=== PATIENT | female | born 1955 | race African-American/Black ===

== ENCOUNTER 2016-09-13 16:44 | Emergency (ER) | payer MEDICARE, MEDICAID ==
[2016-09-13] MEDS ORDERED: Pantoprazole 40 MG VIAL ONE (16:59)
[2016-09-13] MEDS ORDERED: Ondansetron HCl/PF 4 MG/2 ML Vial ONE (16:59)
[2016-09-13 17:12] LABS: #Basophils 0.1 thou/uL (0.0-0.2); #Eosinphils 0.3 thou/uL (0.0-0.7); #Lymphocytes 2.5 thou/uL (1.20-3.40); #Neutrophils 5.7 thou/uL (1.40-6.50); %Basophils 1.4 % (0.0-1.0); %Eosinophils 3.1 % (0.0-10.0); %Monocytes 10.8 % (0.0-10.0); Hematocrit 39.1 % (36.0-47.0); Mean Platelet Volume 7.9 fL (7.4-10.4); Red Blood Cell (RBC) Count 4.12 mill/uL (4.20-5.40); White Blood Cell (WBC) Count 9.7 thou/uL (4.8-10.8)
[2016-09-13 17:26] LABS: ALT (SGPT) 29 U/L (0-55); AST (SGOT) 42 U/L (5-34); Alkaline Phosphatase 94 U/L (40-150); Anion Gap 12 mmol/L (10-20); BUN (Urea Nitrogen) 24 mg/dL (9.8-20.1); Bilirubin, Total 0.8 mg/dL (0.2-1.2); Calc. Creatinine Clearance 0 mL/min (70-130); Calcium 9.7 mg/dL (7.8-10.44); Carbon Dioxide 19 mmol/L (22-29); Chloride 108 mmol/L (98-107); Estimated GFR-MDRD 53; Globulin 4.3 g/dL (2.4-3.5); Protein, Total 7.8 g/dL (6.0-8.3)
== END 2016-09-13 18:01 | disposition home or self-care (01) ==
LOC: BURERS 16:44
DX: R11.2 Nausea with vomiting, unspecified (principal); I50.9 Heart failure, unspecified; I10 Essential (primary) hypertension; D64.9 Anemia, unspecified; F41.9 Anxiety disorder, unspecified; F17.210 Nicotine dependence, cigarettes, uncomplicated; J44.9 Chronic obstructive pulmonary disease, unspecified
CPT/HCPCS: 80053; 82274; 85025; 96361; 96374; 96375; C9113; J2405

== ENCOUNTER 2016-11-10 10:18 | Emergency (ER) | payer MEDICARE, MEDICAID ==
[2016-11-10] MEDS ORDERED: Metoprolol Tartrate 5 MG/5 ML VIAL ONE ×2 (10:29→10:36)
[2016-11-10] MEDS ORDERED: Nitroglycerin 0.4 MG TAB (25 Tab Bottle) ONE (10:52)
[2016-11-10 10:59] LABS: Mean Corpuscular Hemoglobin 30.4 pg (27.0-31.0); Mean Corpuscular Volume 89.5 fl (81.0-99.0); Mean Platelet Volume 8.8 fL (7.4-10.4); Platelet Count 204 thou/uL (130-400); RBC Distribution Width 12.8 % (11.5-14.5); Red Blood Cell (RBC) Count 4.61 mill/uL (4.20-5.40); White Blood Cell (WBC) Count 6.5 thou/uL (4.8-10.8)
[2016-11-10] MEDS ORDERED: Magnesium Sulfate 2 GM/100 ML BAG ONE (11:03)
[2016-11-10 11:04] LABS: INR-International Normal Ratio 1.3; Prothrombin Time 16.7 SEC (12.0-14.7)
[2016-11-10 11:10] LABS: ALT (SGPT) 19 U/L (0-55); AST (SGOT) 35 U/L (5-34); Albumin 3.9 g/dL (3.5-5.0); Alkaline Phosphatase 95 U/L (40-150); Anion Gap 15 mmol/L (10-20); BUN (Urea Nitrogen) 8 mg/dL (9.8-20.1); Bilirubin, Total 0.7 mg/dL (0.2-1.2); Calc. Creatinine Clearance 0 mL/min (70-130); Calcium 9.3 mg/dL (7.8-10.44); Carbon Dioxide 18 mmol/L (22-29); Chloride 107 mmol/L (98-107); Estimated GFR-MDRD 88; Globulin 4.3 g/dL (2.4-3.5); Glucose 68 mg/dL (70-105); Potassium 3.7 mmol/L (3.5-5.1); Protein, Total 8.2 g/dL (6.0-8.3); Sodium 136 mmol/L (136-145)
[2016-11-10 11:13] LABS: Acetaminophen Less than 3.0 mcg/mL (10.0-30.0); Alcohol 50 mg/dL (Less than 10); Salicylate Less than 5.0 mg/dL (15.0-30.0)
[2016-11-10 11:14] LABS: Digoxin Less than 0.15 ng/mL (0.8-2.0)
[2016-11-10 11:16] LABS: Eosinophils 1 % (0-10); Lymphocytes 57 % (21-51); MDiff Complete? YES; Monocytes 12 % (0-10); Neutrophil 29 % (42-75); PLT Morphology Comment Appears Adequate
[2016-11-10 11:18] LABS: CKMB 2.4 ng/mL (0-6.6)
--- NOTE | 2016-11-10 18:38 | RAD ---
PORTABLE CHEST: 11/10/16 An AP portable film at 1104 is compared with a 10/15/15 study. The heart is mildly enlarged and seems a bit larger today than before. The vessels are not grossly c ongested, though they are perhaps a little more prominent than previously. Dense calcification is se en in the aortic arch. The main pulmonary artery seems more prominent in size than it was previously . The trachea is midline. There are no effusions. IMPRESSION: 1. Cardiomegaly. The heart size has increased in the interval. 2. Arteriosclerosis. POS: HOME
== END 2016-11-10 15:40 | disposition short-term general hospital (02) ==
LOC: BURERS 10:18
DX: I11.0 Hypertensive heart disease with heart failure (principal); I50.31 Acute diastolic (congestive) heart failure; D64.9 Anemia, unspecified; F17.210 Nicotine dependence, cigarettes, uncomplicated; Z79.899 Other long term (current) drug therapy
CPT/HCPCS: 36416; 71010; 80053; 80162; 80307; 82553; 83880; 84484; 85025; 85610; 93005; 96361; 96365; 96366; 96375; J3475

== ENCOUNTER 2017-01-02 10:42 | Emergency (ER) | payer MEDICARE, MEDICAID ==
--- NOTE | 2017-01-02 11:34 | RAD ---
CHEST 1 VIEW AND ABDOMEN 2 VIEWS: HISTORY: Abdominal pain, watery diarrhea. FINDINGS/IMPRESSION: The heart size is normal. The lungs are expanded without focal areas of consolidation, pneumothorax , or pleural effusions. There are postop changes of cholecystectomy. No free air or differential fluid levels are seen. Th e bowel gas pattern is unremarkable. There are mild degenerative changes in the spine. No suspicio us calcifications are identified. POS: H
[2017-01-02 11:56] LABS: INR-International Normal Ratio 1.5; Prothrombin Time 18.5 SEC (12.0-14.7)
[2017-01-02 12:20] LABS: Troponin I 0.022 ng/mL (< 0.028)
[2017-01-02 12:21] LABS: BUN (Urea Nitrogen) 12 mg/dL (9.8-20.1); Bilirubin, Total 3.7 mg/dL (0.2-1.2); Calc. Creatinine Clearance 0 mL/min (70-130); Calcium 8.6 mg/dL (7.8-10.44); Carbon Dioxide 20 mmol/L (22-29); Chloride 104 mmol/L (98-107); Estimated GFR-MDRD 86; Glucose 87 mg/dL (70-105); Potassium 3.8 mmol/L (3.5-5.1); Protein, Total 7.8 g/dL (6.0-8.3); Sodium 134 mmol/L (136-145)
[2017-01-02 12:22] LABS: ALT (SGPT) 51 U/L (8-55); AST (SGOT) 127 U/L (5-34); Albumin 3.2 g/dL (3.5-5.0); Alkaline Phosphatase 146 U/L (40-150); Globulin 4.6 g/dL (2.4-3.5); Lipase 96 U/L (8-78)
[2017-01-02 12:24] LABS: #Basophils 0.7 thou/uL (0.0-0.2); #Eosinphils 0.8 thou/uL (0.0-0.7); #Monocytes 0.6 thou/uL (0.11-0.59); #Neutrophils 1.5 thou/uL (1.40-6.50); %Basophils 1.7 % (0.0-1.0); %Eosinophils 1.9 % (0.0-10.0); %Lymphocytes 43.5 % (21.0-51.0); %Neutrophils 38.9 % (42.0-75.0); Hemoglobin 14.1 g/dL (12.0-16.0); Mean Corpuscular HGB CONC 34.6 g/dL (32.0-36.0); Mean Corpuscular Hemoglobin 30.4 pg (27.0-31.0); Mean Corpuscular Volume 87.7 fL (81.0-99.0); Mean Platelet Volume 10.9 fL (7.4-10.4); Platelet Count 98 thou/uL (130-400); RBC Distribution Width 14.7 % (11.5-14.5); Red Blood Cell (RBC) Count 4.64 mill/uL (4.20-5.40)
[2017-01-02 12:25] LABS: MDiff Complete? YES
[2017-01-02] MEDS ORDERED: Ondansetron HCl/PF 4 MG/2 ML Vial ONE (13:41)
--- NOTE | 2017-01-02 13:42 | CT ---
CT ABDOMEN AND PELVIS WITH IV CONTRAST: History Abdominal pain, nausea, diarrhea. FINDINGS: Comparison is made with the exam of 12/11/14. FINDINGS: The lung bases are clear. The liver demonstrates decreased attenuation compress to the spleen consi stent with fatty infiltration. The patient is post cholecystectomy. The pancreas, right adrenal gl and, and kidneys appear normal. There is a 1.5 cm left adrenal adenoma with attenuation values nacho uring about 1 Hounsfield unit. Dilated and varicosity of the right gonadal vein is again seen. The patient is post hysterectomy N o free air or lymphadenopathy is seen. There is a small amount of free fluid in the pelvis. There a re mild degenerative changes in the spine. A normal-appearing appendix is noted. The small bowel l oops are not abnormally dilated. There are vascular calcifications without evidence of aneurysmal dilatation of the abdominal aorta. There is calcified plaque at the origins of the celiac axis, MSA, and both renal arteries. IMPRESSION: 1. Fatty liver. 2. Left adrenal adenoma. 3. Free fluid in the pelvis. 4. Atherosclerotic vascular disease with probable stenotic changes of the origins of the celiac axi s, superior mesenteric artery, and renal arteries. POS: [facility]
[2017-01-02 15:17] LABS: #Lymphocytes 1.7 thou/uL (1.20-3.40); Anion Gap 14 mmol/L (10-20)
[2017-01-02] MEDS ORDERED: Iopamidol 370 76% 100 ML VIAL ONE (18:56)
== END 2017-01-02 13:58 | disposition home or self-care (01) ==
LOC: BURERS 10:42
DX: R19.7 Diarrhea, unspecified (principal); J44.9 Chronic obstructive pulmonary disease, unspecified; M35.00 Sjogren syndrome, unspecified; I11.0 Hypertensive heart disease with heart failure; I50.9 Heart failure, unspecified; F41.9 Anxiety disorder, unspecified; F17.210 Nicotine dependence, cigarettes, uncomplicated; Z79.899 Other long term (current) drug therapy
CPT/HCPCS: 74022; 74177; 80053; 82274; 82553; 83690; 84484; 85025; 85610; 85730; 86850; 86900; 86901; 93005; 94760; 96374; J2405

== ENCOUNTER 2017-01-03 08:34 | Outpatient (CLI) | payer MEDICARE, MEDICAID | END 2017-01-03 08:35 | disposition home or self-care (01) | LOC: BURLAB 08:34 | PROVIDERS: ATTEND Family Medicine | DX: R19.7 Diarrhea, unspecified (principal); R10.9 Unspecified abdominal pain | CPT/HCPCS: 82274; 83630; 87324; 87449 ==

== ENCOUNTER 2017-01-17 11:45 | Emergency (ER) | payer MEDICARE, MEDICAID ==
[2017-01-17 12:45] LABS: Hemoglobin 14.6 g/dL (12.0-16.0); Mean Corpuscular HGB CONC 35.2 g/dL (32.0-36.0); Mean Corpuscular Hemoglobin 29.9 pg (27.0-31.0); Mean Corpuscular Volume 85.1 fl (81.0-99.0); Mean Platelet Volume 8.9 fL (7.4-10.4); Platelet Count 212 thou/uL (130-400); RBC Distribution Width 14.3 % (11.5-14.5); Red Blood Cell (RBC) Count 4.86 mill/uL (4.20-5.40)
[2017-01-17 12:54] LABS: Blood, Urine Large (Negative); Clarity Slightly Cloudy (Clear); Glucose, Urine (Dipstick) Negative (Negative); Leukocyte Negative (Negative); Nitrite Negative (Negative); Protein, Urine (Dipstick) > or equal to 300 mg/dL (Neg-Trace); pH, Urine 5.5 (5.0-9.0)
[2017-01-17 12:57] LABS: ALT (SGPT) 357 U/L (8-55); AST (SGOT) 1535 U/L (5-34); Albumin 3.2 g/dL (3.5-5.0); Alkaline Phosphatase 113 U/L (40-150); Anion Gap 16 mmol/L (10-20); BUN (Urea Nitrogen) 20 mg/dL (9.8-20.1); Bilirubin, Total 2.1 mg/dL (0.2-1.2); Calc. Creatinine Clearance 0 mL/min (70-130); Calcium 8.8 mg/dL (7.8-10.44); Carbon Dioxide 20 mmol/L (22-29); Chloride 98 mmol/L (98-107); Estimated GFR-MDRD 58; Globulin 4.3 g/dL (2.4-3.5); Glucose 89 mg/dL (70-105); Potassium 3.8 mmol/L (3.5-5.1); Protein, Total 7.5 g/dL (6.0-8.3); Sodium 130 mmol/L (136-145)
[2017-01-17 13:00] LABS: Troponin I 0.044 ng/mL (< 0.028)
[2017-01-17 13:03] LABS: Bacteria/HPF None Seen HPF (None Seen); Bilirubin Negative (Negative); Crystals/HPF None Seen HPF (Negative); Hyaline Casts/LPF NONE SEEN LPF (0-3 Hyaline); Oval Fat Bodies/HPF None Seen HPF (None Seen); RBC/HPF 0-3 HPF (0-3); Renal Epithelial None Seen HPF (0-3); Sperm/HPF None Seen HPF (None Seen); Squamous Epithelial 0-3 HPF (0-3); Transitional Epithelial NONE SEEN HPF (0-3); Trichomonas/HPF None Seen HPF (None Seen); WBC/HPF None Seen HPF (0-3); Yeast-All Forms None Seen HPF (None Seen)
[2017-01-17 13:04] LABS: Other Casts/LPF 0-3 COARSE GRAN LPF (0-3 Hyaline)
[2017-01-17 13:06] LABS: CKMB 26.7 ng/mL (0-6.6)
[2017-01-17 13:14] LABS: Lymphocytes 14 % (21-51); MDiff Complete? YES; Monocytes 9 % (0-10); Neutrophil 77 % (42-75)
--- NOTE | 2017-01-17 19:21 | RAD ---
AP PORTABLE CHEST 01/17/2017 1237 HOURS COMPARISON: 11/10/2016 FINDINGS: There has been no adverse interval change. Mild cardiomegaly is about the same. Arteriosclerotic c hange is seen in the aorta. The lungs are clear. There is no congestive change or pleural effusion . The trachea is midline. IMPRESSION: Mild cardiomegaly and arteriosclerosis with no change since the prior study. POS: HOME
--- NOTE | 2017-01-17 19:23 | CT ---
CT BRAIN WITHOUT CONTRAST 01/17/2017 COMPARISON: A 12/11/2014 study done at [facility]. FINDINGS: There have been no significant interval changes. The ventricles are normal in size for age. There is no shift. No intracranial bleeding, mass, or sign of acute stroke is found. There is perhaps a little hypolucency in the deep white matter, which could signify chronic ischemic changes, but the c hanges are minimal. The calvarium appears normal. There is no air-fluid level in the sphenoid sinu s, and the mastoid air cells are clear. IMPRESSION: No acute intracranial finding. POS: HOME
== END 2017-01-17 14:23 | disposition short-term general hospital (02) ==
LOC: BURERS 11:45
DX: K70.30 Alcoholic cirrhosis of liver without ascites (principal); M62.82 Rhabdomyolysis; R53.81 Other malaise; I11.0 Hypertensive heart disease with heart failure; I50.9 Heart failure, unspecified; J44.9 Chronic obstructive pulmonary disease, unspecified; D64.9 Anemia, unspecified; I25.10 Atherosclerotic heart disease of native coronary artery without angina pectoris; F41.9 Anxiety disorder, unspecified; F17.210 Nicotine dependence, cigarettes, uncomplicated; Z79.899 Other long term (current) drug therapy; W06.XXXA Fall from bed, initial encounter
CPT/HCPCS: 51701; 70450; 71010; 80053; 81003; 81015; 82140; 82553; 83880; 84484; 85025; 93005; A4353

== ENCOUNTER 2018-03-23 11:08 | Emergency (ER) | payer MEDICARE, MEDICAID ==
[2018-03-23 12:03] LABS: #Basophils 0.1 thou/uL (0.0-0.2); #Eosinphils 0.2 thou/uL (0.0-0.7); #Lymphocytes 1.3 thou/uL (1.20-3.40); #Monocytes 0.5 thou/uL (0.11-0.59); #Neutrophils 2.1 thou/uL (1.40-6.50); %Basophils 2.7 % (0.0-1.0); %Eosinophils 4.7 % (0.0-10.0); %Lymphocytes 30.4 % (21.0-51.0); %Monocytes 11.8 % (0.0-10.0); %Neutrophils 50.4 % (42.0-75.0); Hemoglobin 14.4 g/dL (12.0-16.0); Mean Corpuscular HGB CONC 37.6 g/dL (32.0-36.0); Mean Corpuscular Hemoglobin 29.4 pg (27.0-31.0); Mean Corpuscular Volume 78.3 fL (78.0-98.0); Mean Platelet Volume 6.2 fL (7.4-10.4); Platelet Count 206 thou/uL (130-400); RBC Distribution Width 12.8 % (11.5-14.5); White Blood Cell (WBC) Count 4.1 thou/uL (4.8-10.8)
[2018-03-23 12:16] LABS: ALT (SGPT) 14 U/L (8-55); AST (SGOT) 33 U/L (5-34); Albumin 3.1 g/dL (3.5-5.0); Alkaline Phosphatase 71 U/L (40-150); Anion Gap 12 mmol/L (10-20); BUN (Urea Nitrogen) 9 mg/dL (9.8-20.1); Bilirubin, Total 1.5 mg/dL (0.2-1.2); Calc. Creatinine Clearance 0 mL/min (70-130); Calcium 8.9 mg/dL (7.8-10.44); Carbon Dioxide 23 mmol/L (22-29); Chloride 89 mmol/L (98-107); Estimated GFR-MDRD 84; Globulin 3.5 g/dL (2.4-3.5); Glucose 108 mg/dL (70-105); Lipase 34 U/L (8-78); Potassium 4.2 mmol/L (3.5-5.1); Protein, Total 6.6 g/dL (6.0-8.3); Sodium 120 mmol/L (136-145)
[2018-03-23 12:17] LABS: Troponin I 0.016 ng/mL (< 0.028)
[2018-03-23 12:23] LABS: INR-International Normal Ratio 1.1; Prothrombin Time 14.4 SEC (12.0-14.7)
[2018-03-23 12:24] LABS: PTT 35.8 SEC (22.9-36.1)
--- NOTE | 2018-03-23 19:25 | RAD ---
AP PORTABLE CHEST: 03/23/2018 1138 HOURS COMPARISON: 01/17/2017 FINDINGS: The heart is mildly enlarged, perhaps a little more so than it was last year. There are no clear con gestive changes, however. The lungs are clear. No effusions are seen. Calcification is seen in the aortic arch. The trachea is midline. IMPRESSION: Cardiomegaly, perhaps a little larger than last year. POS: HOME
== END 2018-03-23 13:55 | disposition short-term general hospital (02) ==
LOC: BURERS 11:08
DX: E87.1 Hypo-osmolality and hyponatremia (principal); E86.0 Dehydration; I11.0 Hypertensive heart disease with heart failure; I50.9 Heart failure, unspecified; J44.9 Chronic obstructive pulmonary disease, unspecified; I25.10 Atherosclerotic heart disease of native coronary artery without angina pectoris; D64.9 Anemia, unspecified; F17.210 Nicotine dependence, cigarettes, uncomplicated
CPT/HCPCS: 36415; 71045; 80053; 82140; 82274; 82553; 83605; 83690; 84484; 85025; 85610; 85730; 87040; 93005; 94760; 96360

== ENCOUNTER 2018-07-13 17:52 | Outpatient (CLI) | payer MEDICARE, MEDICAID ==
--- NOTE | 2018-07-13 22:27 | RAD ---
RIGHT SHOULDER THREE VIEWS: 07/13/18 Comparison is made with an 03/23/18 chest film. There is a fracture of the distal right clavicle with slight displacement. The AC joint is not widened. There is no fracture of the proximal humerus and no dislocation is seen. IMPRESSION: Fracture of the distal clavicle. Code T POS: HOME
== END 2018-07-13 17:53 | disposition home or self-care (01) ==
LOC: BURRAD 17:52
PROVIDERS: ATTEND Family Medicine
DX: S42.031A Displaced fracture of lateral end of right clavicle, initial encounter for closed fracture (principal)